=== PATIENT | male | born 1995 | race Caucasian/White ===

== ENCOUNTER → 2017-07-11 | Outpatient (CLI) | payer OTHER ==
[~2017-07-11] MED LIST: FLUO40CA9 PO; LEVO25TA2 PO; LISI2.5T PO
[2017-07-11 10:44] LABS: ALANINE AMINOTRANSFERASE 35 U/L (12-78); ALBUMIN 4.2 g/dL (3.4-5.0); ANION GAP 12 mmol/L (5-15); CALCIUM 8.8 mg/dL (8.5-10.1); CHLORIDE 98 mmol/L (98-107); CHOLESTEROL, TOTAL 225 mg/dL (140-239); CREATININE 1.16 mg/dL (0.7-1.3)
[2017-07-11 10:47] LABS: ALKALINE PHOSPHATASE 127 U/L (45-117); BILIRUBIN,TOTAL 0.9 mg/dL (0.2-1.0); CHOL/HDL RATIO 2.1; HDL CHOL % 48 % (26-37); HDL CHOLESTEROL (DIRECT) 109 mg/dL (40-60); LDL CHOLESTEROL,CALCULATED 89 mg/dL (54-169); LDL/HDL RATIO 0.8 (0.5-3.0); TOTAL PROTEIN 7.6 g/dL (6.4-8.2); TRIGLYCERIDES 134 mg/dL (50-200); VLDL CHOLESTEROL 27 mg/dL (0-25)
== END | disposition home or self-care (01) ==
LOC: LAB 10:07
PROVIDERS: ATTEND Family Medicine
DX: E10.9 Type 1 diabetes mellitus without complications (principal)
CPT/HCPCS: 36415; 80053; 80061; 82043

== ENCOUNTER → 2018-01-22 | Outpatient (CLI) | payer OTHER ==
[2018-01-22 14:47] LABS: FREE T4 (FREE THYROXINE) 0.84 ng/dL (0.76-1.46); THYROID STIMULATING HORMONE 3.75 mIU/L (0.358-3.740)
== END | disposition home or self-care (01) ==
LOC: LAB 14:17
PROVIDERS: ATTEND Family Medicine
DX: E03.9 Hypothyroidism, unspecified (principal); E55.9 Vitamin D deficiency, unspecified; E11.9 Type 2 diabetes mellitus without complications; Z88.0 Allergy status to penicillin
CPT/HCPCS: 36415; 82306; 84439; 84443

== ENCOUNTER → 2018-08-11 | Outpatient (CLI) | payer OTHER ==
[2018-08-11 11:00] LABS: ALANINE AMINOTRANSFERASE 288 U/L (12-78); ALBUMIN 3.7 g/dL (3.4-5.0); ANION GAP 7 mmol/L (5-15); CALCIUM 9.1 mg/dL (8.5-10.1); CHLORIDE 106 mmol/L (98-107); CHOLESTEROL, TOTAL 242 mg/dL (140-239); CREATININE 0.86 mg/dL (0.7-1.3)
[2018-08-11 11:09] LABS: ALKALINE PHOSPHATASE 165 U/L (45-117); CHOL/HDL RATIO 1.7; FREE T4 (FREE THYROXINE) 0.78 ng/dL (0.76-1.46); HDL CHOL % 58 % (26-37); HDL CHOLESTEROL (DIRECT) 140 mg/dL (40-60); LDL CHOLESTEROL,CALCULATED 87 mg/dL (54-169); LDL/HDL RATIO 0.6 (0.5-3.0); TRIGLYCERIDES 75 mg/dL (50-200); VLDL CHOLESTEROL 15 mg/dL (0-25)
[2018-08-11 12:35] LABS: HEMOGLOBIN A1C 7.4 % (4.2-6.3)
== END | disposition home or self-care (01) ==
LOC: LAB 10:23
PROVIDERS: ATTEND Family Medicine
DX: E10.9 Type 1 diabetes mellitus without complications (principal); E03.9 Hypothyroidism, unspecified
CPT/HCPCS: 36415; 80053; 80061; 82043; 83036; 84439; 84443

== ENCOUNTER → 2019-05-09 | Outpatient (CLI) | payer OTHER ==
[2019-05-09 12:16] LABS: ALANINE AMINOTRANSFERASE 185 U/L (12-78); ANION GAP 8 mmol/L (5-15); CALCIUM 9.1 mg/dL (8.5-10.1); CHLORIDE 101 mmol/L (98-107); CREATININE 1.04 mg/dL (0.7-1.3)
[2019-05-09 12:26] LABS: ALKALINE PHOSPHATASE 182 U/L (45-117); BILIRUBIN,TOTAL 1.4 mg/dL (0.2-1.0); CHOLESTEROL, TOTAL 217 mg/dL (140-239); HDL CHOL % 49 % (26-37); HDL CHOLESTEROL (DIRECT) 107 mg/dL (40-60); LDL CHOLESTEROL,CALCULATED 88 mg/dL (54-169); LDL/HDL RATIO 0.8 (0.5-3.0); TOTAL PROTEIN 7.7 g/dL (6.4-8.2); TRIGLYCERIDES 110 mg/dL (50-200); VLDL CHOLESTEROL 22 mg/dL (0-25)
[2019-05-09 13:15] LABS: OCCULT BLOOD NEGATIVE (NEGATIVE)
[2019-05-09 14:26] LABS: STOOL FOR LEUKOCYTES NONE SEEN (NEGATIVE)
== END | disposition home or self-care (01) ==
LOC: LAB 11:48
PROVIDERS: ATTEND Family Medicine
DX: E03.9 Hypothyroidism, unspecified (principal); R19.7 Diarrhea, unspecified; E10.9 Type 1 diabetes mellitus without complications
CPT/HCPCS: 36415; 80053; 80061; 82272; 83036; 84443; 87046; 87427; 89055

== ENCOUNTER → 2019-06-17 | Outpatient (CLI) | payer OTHER ==
[2019-06-17 13:10] LABS: % IRON SATURATION 38 % (20-55); IRON LEVEL 115 mcg/dL (65-175); TOTAL IRON BINDING CAPACITY 304 mcg/dL (250-450)
== END | disposition home or self-care (01) ==
LOC: LAB 12:29
PROVIDERS: ATTEND Internal Medicine Gastroenterology
DX: K73.9 Chronic hepatitis, unspecified (principal); R94.5 Abnormal results of liver function studies
CPT/HCPCS: 36415; 82103; 82390; 82728; 82784; 83516; 83540; 83550; 84443; 86038; 86704; 86706; 86803; 87340

== ENCOUNTER → 2019-06-25 | Outpatient (CLI) | payer OTHER | END | disposition home or self-care (01) | LOC: CFH 07:28 | PROVIDERS: ATTEND Internal Medicine Gastroenterology | DX: K76.0 Fatty (change of) liver, not elsewhere classified (principal); K73.9 Chronic hepatitis, unspecified; K52.9 Noninfective gastroenteritis and colitis, unspecified; R11.0 Nausea | CPT/HCPCS: 76700 ==

== ENCOUNTER 2019-10-23 06:59 | Day surgery (SDC) | payer OTHER ==
[~2019-10-23] VITALS: Ht 195.6 cm; Wt 100.7 kg
[2019-10-23 07:23] VITALS: BP 138/91
[2019-10-23] MEDS ORDERED: SODIUM CHLORIDE 0.9% 1,000 ML IV SCH (07:25)
[2019-10-23] MEDS ORDERED: FENTANYL PF 100 MCG/2ML ONE (07:52)
[2019-10-23] MEDS ORDERED: NALOXONE 1 MG/ML, 2ML ONE (07:52)
[2019-10-23] MEDS ORDERED: FLUMAZENIL 0.1 MG/1 ML, 5ML ONE (07:52)
[2019-10-23] MEDS ORDERED: MIDAZOLAM 1 MG/ML, 5ML ONE (07:52)
[2019-10-23 07:54] LABS: INTERNATIONAL NORMALIZED RATIO 0.95 (0.93-1.1); PROTHROMBIN TIME 10.1 Seconds (9.6-11.5)
== END 2019-10-23 10:30 | disposition home or self-care (01) ==
LOC: OUT 06:59 → EDSTATUS 09:00 → OUT 10:30
PROVIDERS: ATTEND Internal Medicine Gastroenterology
DX: K75.81 Nonalcoholic steatohepatitis (NASH) (principal); K25.7 Chronic gastric ulcer without hemorrhage or perforation; K52.9 Noninfective gastroenteritis and colitis, unspecified; K73.9 Chronic hepatitis, unspecified; I10 Essential (primary) hypertension; E11.9 Type 2 diabetes mellitus without complications; J45.909 Unspecified asthma, uncomplicated; Z79.4 Long term (current) use of insulin; Z79.890 Hormone replacement therapy; Z79.899 Other long term (current) drug therapy; Z88.0 Allergy status to penicillin; Z82.49 Family history of ischemic heart disease and other diseases of the circulatory system; Z83.3 Family history of diabetes mellitus
CPT/HCPCS: 36415; 47000; 77012; 85610; 88307; 88313; 99156; 99157; J2250; J3010; J7030; J2310

== ENCOUNTER 2019-11-28 12:09 | Emergency (ER) | payer OTHER ==
[~2019-11-28] VITALS: Ht 195.6 cm; Wt 97.8 kg
[2019-11-28] MEDS ORDERED: ONDANSETRON 2MG/ML, 2ML ONE (12:40)
[2019-11-28 12:52] LABS: BASOPHILS # (AUTO) 0.01 x10^3/uL (0-0.1); BASOPHILS % (AUTO) 0 % (0-1); EOSINOPHILS % (AUTO) 0 % (1-7); LYMPHOCYTES # (AUTO) 0.83 x10^3/uL (1-3.4); LYMPHOCYTES % (AUTO) 22 % (22-44); MD NO; MEAN CORPUSCULAR HEMOGLOBIN 35.2 pg (27.5-34.5); MEAN CORPUSCULAR HGB CONC 34.8 g/dL (33.2-36.2); MEAN CORPUSCULAR VOLUME 101.2 fL (81-97); MEAN PLATELET VOLUME 7.7 fL (7.4-10.4); MONOCYTES # (AUTO) 0.33 x10^3/uL (0.2-0.8); MONOCYTES % (AUTO) 9 % (2-9); NEUTROPHILS # (AUTO) 2.64 x10^3/uL (1.8-6.8); NEUTROPHILS % (AUTO) 69 % (42-75); PLATELET COUNT 291 x10^3/uL (130-400); RED BLOOD COUNT 4.37 x10^6/uL (4.38-5.82); RED CELL DISTRIBUTION WIDTH 15.7 % (9.4-14.8)
[2019-11-28] MEDS ORDERED: ONDANSETRON 2MG/ML, 2ML IVPush ONE (13:00)
[2019-11-28] MEDS ORDERED: SODIUM CHLORIDE 0.9% 1,000ML IVBOLUS ONE (13:00)
--- NOTE | 2019-11-28 13:00 | NUR ---
PT HAS CO N/V AND ABDOMINAL PAIN. PT UNABLE TO GET TO PCP. DENIES CP OR SOB.
[2019-11-28 13:02] LABS: CHLORIDE 107 mmol/L (98-107)
[2019-11-28 13:03] LABS: ALBUMIN 3.9 g/dL (3.4-5.0); ANION GAP 13 mmol/L (5-15); CALCIUM 9.4 mg/dL (8.5-10.1)
[2019-11-28 13:08] LABS: ALANINE AMINOTRANSFERASE 49 U/L (12-78); ALKALINE PHOSPHATASE 94 U/L (45-117); TOTAL PROTEIN 7.2 g/dL (6.4-8.2)
[2019-11-28 13:44] VITALS: BP 141/92
--- NOTE | 2019-11-28 13:44 | NUR ---
TASK RN: PT RESTING IN [facility]. VSS. UNABLE TO PROVIDE UA AT THIS TIME
--- NOTE | 2019-11-28 13:59 | NUR ---
Patient/Caregiver given discharge instructions and they have confirmed that they understand the instructions. Patient ambulatory with steady gait.
== END 2019-11-28 14:03 | disposition home or self-care (01) ==
LOC: ED 12:52
DX: R11.2 Nausea with vomiting, unspecified (principal); R19.7 Diarrhea, unspecified; E11.65 Type 2 diabetes mellitus with hyperglycemia; E87.5 Hyperkalemia; I10 Essential (primary) hypertension
CPT/HCPCS: 36415; 80053; 83690; 85025; 96361; 96374; 99283; J2405; J7030

== ENCOUNTER → 2019-12-25 | Outpatient (CLI) | payer OTHER | END | disposition home or self-care (01) | LOC: RAD 09:48 | PROVIDERS: ATTEND Internal Medicine Gastroenterology | DX: K76.0 Fatty (change of) liver, not elsewhere classified (principal); K76.6 Portal hypertension; K31.89 Other diseases of stomach and duodenum; R11.0 Nausea | CPT/HCPCS: 76700; 78264; A9541 ==

== ENCOUNTER 2020-02-04 11:08 | Outpatient (CLI) | payer OTHER ==
[2020-02-04 11:27] LABS: BASOPHILS # (AUTO) 0.02 x10^3/uL (0-0.1); BASOPHILS % (AUTO) 1 % (0-1); EOSINOPHILS # (AUTO) 0.04 x10^3/uL (0-0.4); EOSINOPHILS % (AUTO) 1 % (1-7); LYMPHOCYTES # (AUTO) 1.24 x10^3/uL (1-3.4); LYMPHOCYTES % (AUTO) 31 % (22-44); MD NO; MEAN CORPUSCULAR HEMOGLOBIN 35.9 pg (27.5-34.5); MEAN PLATELET VOLUME 7.7 fL (7.4-10.4); MONOCYTES # (AUTO) 0.25 x10^3/uL (0.2-0.8); MONOCYTES % (AUTO) 6 % (2-9); NEUTROPHILS # (AUTO) 2.39 x10^3/uL (1.8-6.8); NEUTROPHILS % (AUTO) 61 % (42-75); PLATELET COUNT 236 x10^3/uL (130-400); RED BLOOD COUNT 4.31 x10^6/uL (4.38-5.82); RED CELL DISTRIBUTION WIDTH 14.5 % (9.4-14.8)
[2020-02-04 11:38] LABS: ALBUMIN 3.3 g/dL (3.4-5.0); ANION GAP 9 mmol/L (5-15); CALCIUM 8.9 mg/dL (8.5-10.1); CHLORIDE 111 mmol/L (98-107)
[2020-02-04 12:04] LABS: % IRON SATURATION 83 % (20-55); ALANINE AMINOTRANSFERASE 80 U/L (12-78); ALKALINE PHOSPHATASE 120 U/L (45-117); BILIRUBIN,TOTAL 0.7 mg/dL (0.2-1.0); CREATININE 0.82 mg/dL (0.7-1.3); FOLATE LEVEL 6.6 ng/mL (3.1-17.5); IRON LEVEL 97 mcg/dL (65-175); TOTAL IRON BINDING CAPACITY 117 mcg/dL (250-450); TOTAL PROTEIN 6.5 g/dL (6.4-8.2); TRANSFERRIN 100 mg/dL (200-360)
== END 2020-02-04 23:59 | disposition home or self-care (01) ==
LOC: LAB 11:08
PROVIDERS: ATTEND Nurse Practitioner Primary Care
DX: Z13.220 Encounter for screening for lipoid disorders (principal); E10.65 Type 1 diabetes mellitus with hyperglycemia; E55.9 Vitamin D deficiency, unspecified; E03.9 Hypothyroidism, unspecified; E78.1 Pure hyperglyceridemia; I10 Essential (primary) hypertension; R79.9 Abnormal finding of blood chemistry, unspecified; R79.0 Abnormal level of blood mineral; R89.4 Abnormal immunological findings in specimens from other organs, systems and tissues; R06.83 Snoring; E53.9 Vitamin B deficiency, unspecified
CPT/HCPCS: 36415; 80053; 82525; 82607; 82728; 82746; 83540; 83550; 83735; 84100; 84207; 84425; 84466; 85025

== ENCOUNTER 2020-06-18 10:22 | Outpatient (CLI) | payer OTHER ==
[2020-06-18 10:50] LABS: BASOPHILS % (AUTO) 1 % (0-1); EOSINOPHILS % (AUTO) 1 % (1-7); LYMPHOCYTES % (AUTO) 40 % (22-44); MEAN CORPUSCULAR HEMOGLOBIN 34.5 pg (27.5-34.5); MEAN CORPUSCULAR HGB CONC 34.7 g/dL (33.2-36.2); MEAN PLATELET VOLUME 7.2 fL (7.4-10.4); MONOCYTES % (AUTO) 6 % (2-9); NEUTROPHILS % (AUTO) 52 % (42-75); PLATELET COUNT 233 x10^3/uL (130-400); RED BLOOD COUNT 4.77 x10^6/uL (4.38-5.82); RED CELL DISTRIBUTION WIDTH 14.4 % (9.4-14.8)
[2020-06-18 10:52] LABS: MICROSCOPIC NOT IND
[2020-06-18 10:56] LABS: MD NO
[2020-06-18 11:03] LABS: ALBUMIN 3.9 g/dL (3.4-5.0); ANION GAP 7 mmol/L (5-15); CHLORIDE 107 mmol/L (98-107)
[2020-06-18 11:29] LABS: % IRON SATURATION 37 % (20-55); ALANINE AMINOTRANSFERASE 48 U/L (12-78); ALKALINE PHOSPHATASE 139 U/L (45-117); BILIRUBIN,TOTAL 0.8 mg/dL (0.2-1.0); CREATININE 0.74 mg/dL (0.7-1.3); FOLATE LEVEL 2.2 ng/mL (3.1-17.5); FREE T4 (FREE THYROXINE) 0.85 ng/dL (0.76-1.46); IRON LEVEL 80 mcg/dL (65-175); TOTAL IRON BINDING CAPACITY 216 mcg/dL (250-450); TOTAL PROTEIN 7.3 g/dL (6.4-8.2); TRANSFERRIN 178 mg/dL (200-360)
== END 2020-06-18 23:59 | disposition home or self-care (01) ==
LOC: LAB 10:22
PROVIDERS: ATTEND Nurse Practitioner Primary Care
DX: Z13.220 Encounter for screening for lipoid disorders (principal); I10 Essential (primary) hypertension; E10.65 Type 1 diabetes mellitus with hyperglycemia; E55.9 Vitamin D deficiency, unspecified; E03.9 Hypothyroidism, unspecified; R79.9 Abnormal finding of blood chemistry, unspecified; E78.1 Pure hyperglyceridemia; R06.83 Snoring; E53.9 Vitamin B deficiency, unspecified; E04.1 Nontoxic single thyroid nodule
CPT/HCPCS: 36415; 80053; 80061; 81003; 82525; 82607; 82652; 82728; 82746; 83036; 83540; 83550; 83704; 84100; 84207; 84402; 84403; 84425; 84439; 84443; 84466; 84481; 84630; 85025